=== PATIENT | male | born 1950 | race Asian ===

== ENCOUNTER 2023-03-13 08:34 | Outpatient (AMB) | payer OTHER, SELFPAY ==
--- NOTE | 2023-03-13 08:40 | MHC.OFFVIS ---
Intake Vital Signs 03/13/23 08:42 Height 5 ft 6 in Weight 143 lb 1.28 oz BMI 23.1 BP 118/80 Blood Pressure Location Lt brachial Position Sitting Pulse 68 Pulse Source Pulse Oximeter Temp 97.5 F Pulse Oximetry (%) 98 Oxygen Delivery Method Room Air Intake Visit Reasons: Rt Hand & Leg coldness ? Vasculitis Intake Note: New patient here for right hand and right food coldness. ? vasculitis c/o right hand tremr- sees neurology Disposal Operator Required: No Accompanied by: Self / Same As Patient Allergies gemfibrozil [From Lopid] Allergy (Intermediate, Verified 03/13/23 08:41) elevated CPK lisinopril Allergy (Intermediate, Verified 03/13/23 08:41) Cough pravastatin Allergy (Intermediate, Verified 03/13/23 08:41) ELEVATED CPK atorvastatin Allergy (Unknown, Verified 03/13/23 08:41) Unknown fexofenadine [From Deborah] Allergy (Unknown, Verified 03/13/23 08:41) Unknown From LIPITOR Allergy (Intermediate, Uncoded 03/13/23 08:41) MUSCLE PAIN/DROWSINESS Medication List - Last Reconciled 03/13/23 by Donell Vann MD albuterol sulfate 90 mcg/actuation (ProAir HFA) 2 puffs inhalation Q6H PRN amlodipine 5 mg PO DAILY aspirin 81 mg PO DAILY dapagliflozin propanediol (Farxiga) 10 mg PO DAILY ferrous sulfate 325 mg PO BID fluticasone propionate 110 mcg/actuation (Flovent HFA) 1 puff inhalation BID metformin ER 1,000 mg PO BID metoprolol succinate ER 150 mg PO montelukast (Singulair) 10 mg PO DAILY multivitamin with minerals 1 cap PO DAILY rosuvastatin 20 mg PO BEDTIME semaglutide (Ozempic) mg subcut tadalafil 20 mg PO DAILY PRN valsartan 40 mg PO DAILY HPI HPI Comments History of Present Illness Details The patient presents with complaints of coldness of the right hand and right foot. This is an episodic phenomena. He does not really have any discomfort in the regions involved but when he palpates the cold area with the other hand or when someone else feels the skin they note it is quite cool. He does not really recall any color changes that occur with this. The symptoms may last few hours but probably much lesstime. It does not really inhibit his physical activities. He does have a history of coronary artery disease having had a triple bypass procedure in 2013. This involved at left radial, saphenous vein and internal mammary used for bypass as well. That worked out well but he required a stent placement in 2018. In any case these hand and foot symptoms began last winter. He does not really think it is related to cold ambient temperatures but he had noted it more frequently during the winter time. There have been no ulcerations on the fingertips. He does not have any history of dry eyes, dry mouth, inflammatory arthritis, tight skin, or muscle weakness. He did see a vascular surgeon at [facility] in August. No significant peripheral vascular disease was detected. There were further vascular studies undertaken but again no significant obstructive disease was appreciated. The metoprolol had been increased he thinks a few years ago. He does not have any claudication of the arms, hands, legs. [facility] Medical History (Updated 03/13/23 @ 09:43 by Donell Vann MD) Mixed hyperlipidemia Stable angina Aortic dilatation Mild mitral regurgitation Moderate tricuspid regurgitation Intention tremor Pinguecula Nuclear sclerosis of both eyes Peripheral neuropathy SOB (shortness of breath) Ventricular ectopy Diabetes Surgical History H/O endoscopic sinus surgery H/O angioplasty S/P CABG x 3 Family History (Updated 03/13/23 @ 08:48 by LOW Crowe) Mother CAD (coronary artery disease) Myocardial infarct Arthritis Father Dementia CAD (coronary artery disease) Myocardial infarct Social History (Updated 03/13/23 @ 08:49 by LOW Crowe) Household Members: None Alcohol intake: current Alcohol intake frequency: holidays/special occasions only Patient Tobacco Use Status: Never used Tobacco Current occupational status: retired Review of Systems Const Details: Negative for appetite change, weight change, fever, chills, malaise and fatigue Eyes Details: Negative for vision change, dry eyes,headaches and dizziness ENT Details: Negative for hearing change, tinnitus, oral ulcer, nose bleeds and oral dryness. Card Details: Negative chest pain, edema and syncope Resp Details: Negative for SOB, cough and wheezing GI Details: Negative indigestion/heartburn, nausea, abdominal pain, bowel changes, diarrhea, constipation and bloody stool. Details: Some nocturia. Negative for dysuria, hematuria, decreased force/flow and genital discharge Skin/Breast Details: Negative for itching, rash, hives, Raynaud's symptoms, sun sensitivity, and skin cancer Neuro Details: Negative for epilepsy, palsy, stroke, changes in speech, tingling and weakness Psych Details: Negative for anxiety, depression and stress Endo Details: Negative for polyuria and polydypsia Marlon/Lymph Details: Negative for excessive bruising or bleeding. Physical Exam Vital Signs: Last Vital Signs Temp 97.5 F 03/13/23 08:42 Pulse 68 03/13/23 08:42 BP 118/80 03/13/23 08:42 Pulse Ox 98 03/13/23 08:42 Oxygen Delivery Method Room Air 03/13/23 08:42 BMI result Body Mass Index 23.1 APPEARANCE: Patient in no acute distress EYES no redness, pupils equal and reactive to light, eyelids normal. No temporal artery tenderness, redness or swelling. EARS: External ear normal, canal clear and tympanic membrane normal. NOSE/SINUS: Airflow through both nares, no nasal discharge, no bleeding THROAT: Oral mucosa moist, no ulcerations NECK: No thyromegaly or masses, no adenopathy, trachea midline. No bruits heard HEART: Regulrar rhythm, S1-S2 heard, no murmurs, rubs or gallops. LUNG: Clear to percussion and auscultation ABD: Normal bowel sounds, no organomegaly, masses or tenderness. EXTREMITIES: No edema, no calf tenderness, normal peripheral pulses. There is a large scar along the volar aspect of the left arm where he had a radial artery removed for his bypass. No objective evidence of Raynaud's phenomena. NEURO: Oriented and alert x3. No focal weakness. Reflexes symmetric. Gait normal. SKIN: No inflammatory or neoplastic lesions. Normal color and turgor. Nailfold capillary microscopy was negative. JOINT EXAM:.?? Cervical Spine:.? Full range of motion without pain; no tenderness. Thoracic Spine:.? No scoliosis.? No tenderness on palpation. Lumbar Spine:.? Alignment normal.? Full range of motion without pain, no tenderness. Chest Wall:.? No tenderness, swelling, increased warmth or erythema. Hands:.? Normal pain-free range of motion without tenderness, swelling, increased warmth or erythema. 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 Wrists:.? Normal pain-free range of motion without tenderness, swelling, increased warmth or erythema. Elbows:. Normal pain-free range of motion without tenderness, swelling, increased warmth or erythema. Shoulders:.?? Full range of motion without pain. No tenderness, weakness, swelling, increased warmth or erythema. Hips:.? Full range of motion without pain. Hip bursa:.? No tenderness. Knees:.?? Normal pain-free range of motion without tenderness, swelling, increased warmth or erythema.? There is no effusion or crepitation Ankles:.? Normal pain-free range of motion without tenderness, swelling, increased warmth or erythema. Feet:.? Normal pain-free range of motion without tenderness, swelling, increased warmth or erythema. Tender points:.? No tenderness to digital palpation at the occiput, trapezius, second rib, lateral epicondyle, knees, greater trochanter and gluteal area bilaterally. ? Results Reviewed Results Reviewed: The patient has episodic feelings of cold right hand and right foot. He does not really describe a classic color changes 1 might see with Raynaud's phenomenon but the symptoms a reversible ischemia do seem to correspond with Raynaud's phenomena. I do not see any skin changes suggesting severe disease with ulcerations or infarct. The capillary microscopy was negative so this is likely a benign process. I do not see any signs or detect symptoms that might be construed as an associated rheumatic disease. I will check some lab work looking into the possibility of inflammatory disease, rheumatoid arthritis, lupus, scleroderma, crest syndrome, or an ANCA related vasculitis. He is already on a calcium channel sai. It is likely the dose of beta-sai hears on may be promoting some of his Raynaud's symptoms. I would suspect though it sounds like he needs it for his cardiac disease so stopping it would not be a great idea. We might also consider phosphodiesterase inhibitor treatment on a regular basis if symptoms become more bothersome. I will get back to him with the results of his lab work. Follow-up in 3-4 months would be reasonable. Assessment & Plan Assessment & Plan (1) Diabetes: Code(s): E11.9 - Type 2 diabetes mellitus without complications Plan The patient has episodic feelings of cold right hand and right foot. He does not really describe the classic color changes one might see with Raynaud's phenomenon but the symptoms are of a reversible ischemia; they do seem to corrcorrespond with Raynaud's phenomena. I do not see any skin changes suggesting severe disease with ulcerations or infarct. The capillary microscopy was negative so this is likely a benign process. I do not see any signs or detect symptoms that might be construed as an associated rheumatic disease. I will check some lab work looking into the possibility of inflammatory disease, rheumatoid arthritis, lupus, scleroderma, CREST syndrome, or an ANCA related vasculitis. He is already on a calcium channel sai. It is likely the dose of beta-sai he is on may be promoting some of his Raynaud's symptoms. I would suspect though it sounds like he needs it for his cardiac disease so stopping it would not be a great idea. We might also consider a phosphodiesterase inhibitor treatment on a regular basis if symptoms become more bothersome. I will get back to him with the results of his lab work. Follow-up in 3-4 months would be reasonable Orders: Orders ANCA Vasculitides Today E11.9 - Type 2 diabetes mellitus without complications, I73.00 - Raynaud's syndrome without gangrene SHIRLEY Reflex Titer and Pattern Today E11.9 - Type 2 diabetes mellitus without complications, I73.00 - Raynaud's syndrome without gangrene Erythrocyte Sedimentation Rate Today E11.9 - Type 2 diabetes mellitus without complications, I73.00 - Raynaud's syndrome without gangrene Scleroderma 70 Antibody Today E11.9 - Type 2 diabetes mellitus without complications, I73.00 - Raynaud's syndrome without gangrene Anti-Centromere B Antibodies Today E11.9 - Type 2 diabetes mellitus without complications, I73.00 - Raynaud's syndrome without gangrene Protein Creatinine Ratio, Ur Today E11.9 - Type 2 diabetes mellitus without complications, I73.00 - Raynaud's syndrome without gangrene Cyclic Citrullinated Peptide Today E11.9 - Type 2 diabetes mellitus without complications, I73.00 - Raynaud's syndrome without gangrene Rheumatoid Factor Today E11.9 - Type 2 diabetes mellitus without complications, I73.00 - Raynaud's syndrome without gangrene C Reactive Protein Today E11.9 - Type 2 diabetes mellitus without complications, I73.00 - Raynaud's syndrome without gangrene Coding Level of Care Code New Pt Level 3 (79880) Diagnoses Diabetes E11.9
[2023-03-13 08:42] VITALS: BP 118/80; PULSE 68; TEMP 36.4; O2SAT 98; BMI 23.1
== END 2023-03-13 09:48 | disposition home or self-care (01) ==
PROVIDERS: PCP Internal Medicine; Referring Provider Internal Medicine; Visit Provider Internal Medicine Rheumatology
DX: E11.9 Type 2 diabetes mellitus without complications (principal)
CPT/HCPCS: 99203

== ENCOUNTER → 2023-03-13 08:34 | Outpatient (BNVA) | payer OTHER, SELFPAY | PROVIDERS: PCP Internal Medicine; Referring Provider Internal Medicine; Visit Provider Internal Medicine Rheumatology ==

== ENCOUNTER 2023-03-13 09:52 | Outpatient (REF) | payer OTHER, SELFPAY ==
[2023-03-13 11:03] LABS: Rheumatoid Factor < 13.0 IU/mL (<15.0)
[2023-03-13 11:06] LABS: C Reactive Protein < 0.10 mg/dL (< or = 0.50); Creatinine Urine 69.46 mg/dL; Protein/Creatinine Ratio, Ur 0.42 (<0.2); Total Protein Urine Random 29 mg/dL (<12)
[2023-03-13 11:15] LABS: Erythrocyte Sedimentation Rate 16 MM/HR (0-15)
[2023-03-15 14:42] LABS: Anti-Centromere B Antibodies <1.0 NEG AI (<1.0 NEG)
[2023-03-16 15:43] LABS: Cyclic Citrullinated Peptide <16 UNITS
[2023-03-16 20:24] LABS: Myeloperoxidase Antibody <1.0 AI; Proteinase 3 PR3 Antibodies <1.0 AI; Scleroderma 70 Antibody <1.0 NEG AI (<1.0 NEG)
[2023-03-17 09:53] LABS: Anti Nuclear Antibody Screen NEGATIVE (NEGATIVE)
== END 2023-03-13 09:53 | disposition home or self-care (01) ==
LOC: HO.10HDL 09:52
PROVIDERS: Visit Provider Internal Medicine Rheumatology
DX: I73.00 Raynaud's syndrome without gangrene (principal); E11.9 Type 2 diabetes mellitus without complications
CPT/HCPCS: 36415; 82570; 84156; 85652; 86021; 86038; 86140; 86200; 86235; 86431

== ENCOUNTER 2023-04-24 11:24 | Outpatient (AMB) | payer OTHER, SELFPAY ==
[2023-04-24 11:35] VITALS: BP 132/68; PULSE 60; TEMP 36.3; O2SAT 96; BMI 23.2
--- NOTE | 2023-04-24 11:35 | A.OFFVIS_ITS ---
Intake Vital Signs 04/24/23 11:35 Height 5 ft 6 in Weight 143 lb 15.39 oz BMI 23.2 BP 132/68 Blood Pressure Location Rt brachial Position Sitting Pulse 60 Pulse Source Pulse Oximeter Temp 97.3 F Temp Source Skin Pulse Oximetry (%) 96 Oxygen Delivery Method Room Air Intake Visit Reasons: raynauds Intake Note: Patient presents today to follow up on Raynaud's and test results. Survey Crew Chief Required: No Accompanied by: Self / Same As Patient Allergies gemfibrozil [From Lopid] Allergy (Intermediate, Verified 04/24/23 11:35) elevated CPK lisinopril Allergy (Intermediate, Verified 04/24/23 11:35) Cough pravastatin Allergy (Intermediate, Verified 04/24/23 11:35) ELEVATED CPK atorvastatin Allergy (Unknown, Verified 04/24/23 11:35) Unknown fexofenadine [From Deborah] Allergy (Unknown, Verified 04/24/23 11:35) Unknown From LIPITOR Allergy (Intermediate, Uncoded 04/24/23 11:35) MUSCLE PAIN/DROWSINESS Medication List - Last Reconciled 04/24/23 by Donell Vann MD albuterol sulfate 90 mcg/actuation (ProAir HFA) 2 puffs inhalation Q6H PRN amlodipine 5 mg PO DAILY aspirin 81 mg PO DAILY carbidopa-levodopa 25-100 mg tabs PO dapagliflozin propanediol (Farxiga) 10 mg PO DAILY ferrous sulfate 325 mg PO BID fluticasone propionate 110 mcg/actuation (Flovent HFA) 1 puff inhalation BID metformin ER 1,000 mg PO BID metoprolol succinate ER 150 mg PO montelukast (Singulair) 10 mg PO DAILY multivitamin with minerals 1 cap PO DAILY rosuvastatin 20 mg PO BEDTIME semaglutide (Ozempic) mg subcut tadalafil 20 mg PO DAILY PRN valsartan 40 mg PO DAILY HPI HPI Comments History of Present Illness Details The patient returns today for evaluation of Raynaud's phenomena. He again gives a history that his hands and the right foot turn cold episodically. He does not notice any color change. He has not had any fingertip or toe ulcerations. He did see Neurology at [facility] because of his tremor. They thought maybe he had some autonomic instability and possibly early Parkinson's so they put him on some Sinemet. He does not think it has made a difference so far. We had done blood work last time looking into the possibility of rheumatic disease. He does not have any significant joint pain or swelling. There has been no change in the skin. [facility] Medical History (Updated 03/13/23 @ 09:43 by Donell Vann MD) Mixed hyperlipidemia Stable angina Aortic dilatation Mild mitral regurgitation Moderate tricuspid regurgitation Intention tremor Pinguecula Nuclear sclerosis of both eyes Peripheral neuropathy SOB (shortness of breath) Ventricular ectopy Diabetes Surgical History H/O endoscopic sinus surgery H/O angioplasty S/P CABG x 3 Family History Mother CAD (coronary artery disease) Myocardial infarct Arthritis Father Dementia CAD (coronary artery disease) Myocardial infarct Social History Household Members: None Alcohol intake: current Alcohol intake frequency: holidays/special occasions only Patient Tobacco Use Status: Never used Tobacco Current occupational status: retired Review of Systems Const Details: Negative for appetite change, weight change, fever, chills, malaise and fatigue Eyes Details: Negative for vision change, dry eyes,headaches and dizziness ENT Details: Negative for hearing change, tinnitus, oral ulcer, nose bleeds and oral dryness. Card Details: Negative chest pain, edema and syncope Resp Details: Negative for SOB, cough and wheezing GI Details: Negative indigestion/heartburn, nausea, abdominal pain, bowel changes, diarrhea, constipation and bloody stool. Skin/Breast Details: Negative for itching, rash, hives, Raynaud's symptoms, sun sensitivity, and skin cancer Neuro Details: Negative for epilepsy, palsy, stroke, changes in speech, tingling and weakness Endo Details: Negative for polyuria and polydypsia Marlon/Lymph Details: Negative for excessive bruising or bleeding. Physical Exam Vital Signs: Last Vital Signs Temp 97.3 F 04/24/23 11:35 Pulse 60 04/24/23 11:35 BP 132/68 04/24/23 11:35 Pulse Ox 96 04/24/23 11:35 Oxygen Delivery Method Room Air 04/24/23 11:35 BMI result Body Mass Index 23.2 APPEARANCE: Patient in no acute distress EYES no redness, pupils equal and reactive to light, eyelids normal EXTREMITIES: No edema, no calf tenderness, normal peripheral pulses. SKIN: No inflammatory or neoplastic lesions. Normal color and turgor JOINT EXAM: No swollen or tender joints?? ? Results Reviewed Results Reviewed: Laboratory Tests 03/13/23 10:00 ESR 16 H C-Reactive Protein < 0.10 Rheumatoid Factor < 13.0 Cycl Citrul Peptide IgG <16 SHIRLEY Screen NEGATIVE Laboratory Tests 03/13/23 10:00 Protein/Creatinin Ratio 0.42 H Proteinase 3 (PR3) Ab <1.0 Myeloperoxidase Ab <1.0 Scl-70 Scleroderma Ab <1.0 NEG Centromere B Antibody <1.0 NEG Assessment & Plan Assessment & Plan (1) Raynaud phenomenon: Code(s): I73.00 - Raynaud's syndrome without gangrene Plan He continues to have episodic changes in the skin temperature of his extremities. This is not accompanied by color changes in the skin so does not fit classical Raynaud's disease so so for now that is a working diagnosis. I do not find any physical exam or historical evidence to suggest a rheumatic disease. Additionally multiple antibody studies were negative. We could consider treating him with more aggressive medication for Raynaud's. This might mean increasing his amlodipine, reducing or stopping his beta sai or putting him on regular doses of Cialis. Any of those maneuvers may not be advisable because of his previous history of coronary disease he is probably stable on these meds so changing them around may carry some risk. Given the relatively infrequent occurrence of his symptoms I do not think it is worth changing his medications at this point. He could discuss this further with his other prescribing doctors. General measures to remain physically active and keep the body core temperature warm are recommended. A return visit in about a year is recommended. Coding Level of Care Code Est Pt Level 3 (35003) Diagnoses Raynaud phenomenon I73.00
== END 2023-04-24 12:09 | disposition home or self-care (01) ==
PROVIDERS: PCP Internal Medicine; Visit Provider Internal Medicine Rheumatology
DX: I73.00 Raynaud's syndrome without gangrene (principal)
CPT/HCPCS: 99213

== ENCOUNTER → 2023-04-24 11:24 | Outpatient (BNVA) | payer OTHER, SELFPAY | PROVIDERS: PCP Internal Medicine; Visit Provider Internal Medicine Rheumatology ==